=== PATIENT | male | born 1980 | race Caucasian/White ===

== ENCOUNTER 2025-01-03 11:45 | Emergency (ER) | payer OTHER ==
[2025-01-03 12:28] LABS: Absolute Lymphocytes (CBC) 2.0 K/uL (0.7-4.9); Hematocrit 49.4 % (39.6-49.0); Hemoglobin 17.0 g/dL (13.6-17.9); MCH 28.2 pg (27.0-35.0); MCHC 34.3 g/dL (32.0-36.0); MCV 82.0 fL (80-100); MPV 8.9 fL (7.6-11.3); Nucleated RBC Absolute Count 0.0 (0-0); Nucleated Red Blood Cells % 0.4 % (0-0); RBC Red Blood Cell Count 6.03 M/uL (4.33-5.43); White Blood Count 7.10 thou/uL (4.3-10.9)
[2025-01-03 12:29] LABS: Urine Microscopic Reflex YN NO UMIC
[2025-01-03] MEDS ORDERED: FAMOTIDINE 20 MG/2 ML VIAL IV ONE (12:39)
[2025-01-03] MEDS ORDERED: ASPIRIN 81 MG CHEWABLE TABLET ONE (12:39)
[2025-01-03] MEDS ORDERED: NA CHLORIDE 0.9% 500 ML ONE (12:40)
[2025-01-03 12:41] LABS: PT Prothrombin Time 13.3 SECONDS (10-13.0); Protime INR 1.18
--- NOTE | 2025-01-03 12:48 | RAD REPORT ---
EXAMINATION: ONE VIEW CHEST XR CLINICAL INDICATION: Male, 44 years old.,CHEST PAIN TECHNIQUE: Frontal chest projection is submitted. Examination is limited by patient positioning and t echnique. COMPARISON: No prior exam. FINDINGS: The lungs are well inflated and clear. No pneumothorax or sizable effusion. The heart is normal in s ize. Mediastinal contours are unremarkable. IMPRESSION: No acute intrathoracic abnormalities.
[2025-01-03 12:55] LABS: ALT/SGPT 201.0 U/L (16-61); AST/SGOT 91.0 U/L (15-37); Albumin 4.0 g/dL (3.4-5.0); Albumin/Globulin Ratio 1.0 (1.1-1.8); Alkaline Phosphatase 120.0 U/L (45-117); Anion Gap 10.3 mEq/L (5.0-15.0); BUN Blood Urea Nitrogen 10.0 mg/dL (7-18); Bilirubin Indirect, Calculated 0.5 mg/dL (0.2-0.8); Globulin 4.0 g/dL (2.3-3.5); Glucose Level 107.0 mg/dL (74-106); Lipase 24.0 U/L (13-75); Magnesium 2.3 mg/dL (1.6-2.4); NT PRO-BNP 10.0 pg/mL (<125); Potassium 3.3 mEq/L (3.5-5.1); Troponin High Sensitivity 5.2 pg/mL (<58.9)
[2025-01-03] MEDS ORDERED: POTASSIUM 25 MEQ EFFERV TAB ONE (16:18)
[2025-01-03] MEDS ORDERED: AMLODIPINE 5 MG TAB ONE (16:18)
--- NOTE | 2025-01-03 16:21 | ER ---
Nurse's Notes [facility] Name: Andre Jaramillo Age: 44 yrs Sex: Male : 1980 Arrival Date: 01/03/2025 Time: 11:45 Bed 15 Private MD: Diagnosis: Chest pain, unspecified;Essential (primary) hypertension Presentation: 01/03 12:02 Chief complaint: Patient states: Pt reports mild palpitations intermittently x3 days. ss Denies pain/N/V. Reports hx of elevated BP-currently monitoring per PCP. Coronavirus screen: Vaccine status: Patient reports receiving the 2nd dose of the covid vaccine. Client denies travel out of the [place] in the last 14 days. Ebola Screen: Patient negative for fever greater than or equal to 101.5 degrees Fahrenheit, and additional compatible Ebola Virus Disease symptoms Patient denies exposure to infectious person. Patient denies travel to an Ebola-affected area in the 21 days before illness onset. Initial Sepsis Screen: Does the patient meet any 2 criteria? No. Patient's initial sepsis screen is negative. Does the patient have a suspected source of infection? No. Patient's initial sepsis screen is negative. Risk Assessment: Do you want to hurt yourself or someone else? Patient reports no desire to harm self or others. Onset of symptoms was December 31, 2024. 12:02 Method Of Arrival: Ambulatory ss 12:02 Acuity: IRA 2 ss Triage Assessment: 12:04 General: Appears in no apparent distress. Behavior is calm, cooperative. Pain: Denies ss pain. Historical: - Allergies: 12:04 No Known Allergies; ss - Home Meds: 12:04 None [Active]; ss - PMHx: 12:04 Hypertensive disorder; ss - PSHx: 12:04 None; ss - Immunization history:: Adult Immunizations up to date, Client reports receiving the 2nd dose of the Covid vaccine, Last tetanus immunization: up to date. - Infectious Disease History:: Denies. - Social history:: Smoking status: Patient denies any tobacco usage or history of. Screenin:48 [facility] ED Fall Risk Assessment (Adult) History of falling in the last 3 months, bp including since admission No falls in past 3 months (0 pts) Confusion or Disorientation No (0 pts) Intoxicated or Sedated No (0 pts) Impaired Gait No (0 pts) Mobility Assist Device Used No (0 pt) Altered Elimination No (0 pt) Score/Fall Risk Level 0 - 2 = Low Risk Oriented to surroundings. Abuse screen: Denies threats or abuse. Denies injuries from another. Nutritional screening: No deficits noted. Tuberculosis screening: No symptoms or risk factors identified. Assessment: 12:10 General: SEE TRIAGE NOTE. bp 16:48 Reassessment: Patient appears in no apparent distress at this time. Patient is alert, bp oriented x 3, equal unlabored respirations, skin warm/dry/pink. Vital Signs: 12:02 Weight 97.52 kg; Height 5 ft. 11 in. ; Pain 1/10; ss 12:09 BP 170 / 102; Pulse 78; Resp 19; Temp 98.2; Pulse Ox 98% ; ts3 16:47 BP 164 / 98; Pulse 71; Resp 17; Pulse Ox 98% ; bp 12:02 Body Mass Index 29.99 (97.52 kg, 180.34 cm) ss 12:02 Pain Scale: Adult ss ED Course: 11:50 Patient arrived in ED. im 11:58 Keon Pretty MD is Attending Physician. jeffery 12:04 Triage completed. ss 12:04 Arm band placed on right wrist. ss 12:09 EKG done, by machine tool technician instructor. reviewed by Keon Pretty MD. ts3 12:15 Cesar Goodman, RN is Primary Nurse. bp 12:24 Initial lab(s) drawn, by labelling machine operator, sent to lab. Inserted saline lock: 20 gauge in right ts3 antecubital area, using aseptic technique. Blood collected. Flushed with 10 mL NS. 12:24 Urine collected: clean catch specimen, sent to lab. ts3 12:36 XRAY Chest (1 view) In Process Unspecified. EDMS 16:19 Jose Radford MD is Referral Physician. jeffery 16:48 Patient has correct armband on for positive identification. bp 17:22 No provider procedures requiring assistance completed. IV discontinued, intact, bp bleeding controlled, No redness/swelling at site. Pressure dressing applied. Administered Medications: 12:45 Drug: Aspirin PO Chewable Tablet 324 mg PO once; 81 mg tablets x 4 Route: PO; bp 17:21 Follow up: Response: No adverse reaction bp 12:45 Drug: Famotidine IVP 20 mg IVP once; dilute with 10 mL 0.9% NaCl; give over 2 minutes bp Route: IVP; Site: right antecubital; 17:21 Follow up: Response: No adverse reaction bp 12:45 Drug: NS 0.9% IV 500 ml 500 ml IV at 1 bolus once; to be given as a bolus over 30 bp minutes Volume: 500 ml; Route: IV; Rate: 1 bolus; Site: right antecubital; 17:23 Follow up: IV Status: Completed infusion bp 16:49 Drug: Potassium PO Effervescent Tablet 25 mEq PO once; dissolve in 4 ounces of water or bp juice Route: PO; 17:21 Follow up: Response: No adverse reaction bp 16:49 Drug: Lisinopril PO 20 mg PO once Route: PO; bp 17:21 Follow up: Response: No adverse reaction bp 16:49 Drug: Norvasc PO 5 mg PO once Route: PO; bp 17:21 Follow up: Response: No adverse reaction bp Medication: 16:48 VIS not applicable for this client. bp Outcome: 16:20 Discharge ordered by MD. gil 17:22 Discharged to home ambulatory, bp 17:22 Condition: stable 17:22 Discharge instructions given to patient, Instructed on discharge instructions, follow up and referral plans. medication usage, Demonstrated understanding of instructions, follow-up care, medications, Prescriptions given X 2, 17:22 Patient left the ED. bp Signatures: Dispatcher [employer] EDMI Keon Pretty MD MD cha Blanchard, Shelby, RN RN Cesar Goodman RN RN Bobbi Encarnacion Taisha ts3
--- NOTE | 2025-01-03 16:21 | EDPHYS ---
Physician Documentation [facility] Name: Andre Jaramillo Age: 44 yrs Sex: Male : 1980 Arrival Date: 01/03/2025 Time: 11:45 Bed 15 Private MD: FELICITA Physician Keon Pretty HPI: 01/03 16:12 This 44 yrs old Male presents to ER via Ambulatory with complaints of chest jeffery discomfort, High Blood Pressure. 16:12 The patient has elevated blood pressure and discovered this at home, at a physician's [facility] office. Onset: The symptoms/episode began/occurred 3 day(s) ago. Modifying factors: The symptoms are aggravated by nothing, The symptoms are alleviated by remaining still. Associated signs and symptoms: The patient has no apparent associated signs or symptoms. Severity of symptoms: At its worst the blood pressure was moderate, in the emergency department the blood pressure is unchanged. The patient has experienced similar episodes in the past, multiple times. Historical: - Allergies: 12:04 No Known Allergies; ss - Home Meds: 12:04 None [Active]; ss - PMHx: 12:04 Hypertensive disorder; ss - PSHx: 12:04 None; ss - Immunization history:: Adult Immunizations up to date, Client reports receiving the 2nd dose of the Covid vaccine, Last tetanus immunization: up to date. - Infectious Disease History:: Denies. - Social history:: Smoking status: Patient denies any tobacco usage or history of. ROS: 16:16 Constitutional: Negative for fever, chills, and weight loss, Eyes: Negative for injury, jeffery pain, redness, and discharge, ENT: Negative for injury, pain, and discharge, Neck: Negative for injury, pain, and swelling, Respiratory: Negative for shortness of breath, cough, wheezing, and pleuritic chest pain, Abdomen/GI: Negative for abdominal pain, nausea, vomiting, diarrhea, and constipation, Back: Negative for injury and pain, : Negative for injury, bleeding, discharge, and swelling, MS/Extremity: Negative for injury and deformity, Skin: Negative for injury, rash, and discoloration, Neuro: Negative for headache, weakness, numbness, tingling, and seizure, Psych: Negative for depression, anxiety, suicide ideation, homicidal ideation, and hallucinations, Allergy/Immunology: Negative for hives, rash, and allergies, Endocrine: Negative for neck swelling, polydipsia, polyuria, polyphagia, and marked weight changes, Hematologic/Lymphatic: Negative for swollen nodes, abnormal bleeding, and unusual bruising, 16:16 Cardiovascular: Positive for palpitations, 16:16 MS/extremity: Negative for acute changes, Exam: 16:16 Constitutional: This is a well developed, well nourished patient who is awake, alert, jeffery and in no acute distress. Head/Face: Normocephalic, atraumatic. Eyes: Pupils equal round and reactive to light, extra-ocular motions intact. Lids and lashes normal. Conjunctiva and sclera are non-icteric and not injected. Cornea within normal limits. Periorbital areas with no swelling, redness, or edema. ENT: Nares patent. No nasal discharge, no septal abnormalities noted. Tympanic membranes are normal and external auditory canals are clear. Oropharynx with no redness, swelling, or masses, exudates, or evidence of obstruction, uvula midline. Mucous membranes moist. Neck: Trachea midline, no thyromegaly or masses palpated, and no cervical lymphadenopathy. Supple, full range of motion without nuchal rigidity, or vertebral point tenderness. No Meningismus. Chest/axilla: Normal chest wall appearance and motion. Nontender with no deformity. No lesions are appreciated. Cardiovascular: Regular rate and rhythm with a normal S1 and S2. No gallops, murmurs, or rubs. Normal PMI, no JVD. No pulse deficits. Respiratory: Lungs have equal breath sounds bilaterally, clear to auscultation and percussion. No rales, rhonchi or wheezes noted. No increased work of breathing, no retractions or nasal flaring. Abdomen/GI: Soft, non-tender, with normal bowel sounds. No distension or tympany. No guarding or rebound. No evidence of tenderness throughout. Back: No spinal tenderness. No costovertebral tenderness. Full range of motion. Male : Normal genitalia with no discharge or lesions. Skin: Warm, dry with normal turgor. Normal color with no rashes, no lesions, and no evidence of cellulitis. MS/ Extremity: Pulses equal, no cyanosis. Neurovascular intact. Full, normal range of motion., bilateral aka Neuro: Awake and alert, GCS 15, oriented to person, place, time, and situation. Cranial nerves II-XII grossly intact. Motor strength 5/5 in all extremities. Sensory grossly intact. Cerebellar exam normal. Normal gait. Psych: Awake, alert, with orientation to person, place and time. Behavior, mood, and affect are within normal limits. 16:16 ECG was reviewed by the Attending Physician. Vital Signs: 12:02 Weight 97.52 kg; Height 5 ft. 11 in. ; Pain 1/10; ss 12:09 BP 170 / 102; Pulse 78; Resp 19; Temp 98.2; Pulse Ox 98% ; ts3 16:47 BP 164 / 98; Pulse 71; Resp 17; Pulse Ox 98% ; bp 12:02 Body Mass Index 29.99 (97.52 kg, 180.34 cm) ss 12:02 Pain Scale: Adult ss MDM: 11:58 Medical Screening Exam initiated jeffery 16:17 Differential diagnosis: abnormal EKG, acute myocardial infarction, acute pericarditis, jeffery anxiety, coronary artery disease chest wall pain, congestive heart failure cholecystitis, Cholelithiasis costochondritis, hypertensive crisis, Malignant HTN. HEART Score: History: Slightly Suspicious (0), ECG: Normal (0), Age: < or = 45 years (0), Risk Factors: > or = 3 Risk factors for atherosclerotic disease (2), [Hypertension] [+ Family HX] [Obesity] Troponin: < or = 1 x Normal Limit (0). The patient was given aspirin in the Emergency Department. RAYMOND Risk Score: 1 - Three or more CAD risk factors, TOTAL SCORE = 1. Data reviewed: vital signs, nurses notes, lab test result(s), EKG, radiologic studies, plain films. Consideration of Admission/Observation Escalation of care including admission/observation considered. I considered the following discharge prescriptions or medication management in the emergency department Medications were administered in the Emergency Department. See MAR. Independent interpretation of the following test(s) in the Emergency Department EKG: See my EKG interpretation above. Test considered but Not performed: Ultrasound no 2 d echo. Historians other than the Patient: pt well informed. Care significantly affected by the following chronic conditions: Hypertension, Obesity. Counseling: I had a detailed discussion with the patient and/or guardian regarding the historical points, exam findings, and any diagnostic results supporting the discharge/admit diagnosis, the presence of at least one elevated blood pressure reading (>120/80) during this emergency department visit, lab results, radiology results, the need for outpatient follow up, for definitive care, a neon sign erector, a family practitioner. 01/03 11:59 Order name: Basic Metabolic Panel; Complete Time: 16:06 [facility] 01/03 11:59 Order name: CBC with Diff; Complete Time: 16:06 [facility] 01/03 11:59 Order name: LFT's; Complete Time: 16:06 [facility] 01/03 11:59 Order name: Magnesium; Complete Time: 16:06 [facility] 01/03 11:59 Order name: NT PRO-BNP; Complete Time: 16:06 [facility] 01/03 11:59 Order name: PT-INR; Complete Time: 16:06 [facility] 01/03 11:59 Order name: Troponin HS; Complete Time: 16:06 [facility] 01/03 11:59 Order name: Lipase; Complete Time: 16:06 [facility] 01/03 11:59 Order name: UA Rfx Zuhair Cult if indicated; Complete Time: 16:06 [facility] 01/03 16:12 Order name: Troponin High Sensitivity: now jeffery 01/03 11:59 Order name: XRAY Chest (1 view); Complete Time: 16:06 [facility] 01/03 11:59 Order name: Cardiac monitoring; Complete Time: 12:04 [facility] 01/03 11:59 Order name: EKG - Nurse/Tech; Complete Time: 12:04 [facility] 01/03 11:59 Order name: IV Saline Lock; Complete Time: 12:24 [facility] 01/03 11:59 Order name: Labs collected and sent; Complete Time: 12:24 [facility] 01/03 11:59 Order name: O2 Per Protocol; Complete Time: 12:45 [facility] 01/03 11:59 Order name: O2 Sat Monitoring; Complete Time: 12:05 [facility] EC:16 Rate is 79 beats/min. Rhythm is regular. QRS [place] is Normal. GA interval is normal. QRS jeffery interval is normal. QT interval is normal. No Q waves. T waves are Normal. No ST changes noted. Clinical impression: NSR w/ Non-specific ST/T Changes and No evidence of ischemia. Interpreted by me. Reviewed by me. Administered Medications: 12:45 Drug: Aspirin PO Chewable Tablet 324 mg PO once; 81 mg tablets x 4 Route: PO; bp 17:21 Follow up: Response: No adverse reaction bp 12:45 Drug: Famotidine IVP 20 mg IVP once; dilute with 10 mL 0.9% NaCl; give over 2 minutes bp Route: IVP; Site: right antecubital; 17:21 Follow up: Response: No adverse reaction bp 12:45 Drug: NS 0.9% IV 500 ml 500 ml IV at 1 bolus once; to be given as a bolus over 30 bp minutes Volume: 500 ml; Route: IV; Rate: 1 bolus; Site: right antecubital; 17:23 Follow up: IV Status: Completed infusion bp 16:49 Drug: Potassium PO Effervescent Tablet 25 mEq PO once; dissolve in 4 ounces of water or bp juice Route: PO; 17:21 Follow up: Response: No adverse reaction bp 16:49 Drug: Lisinopril PO 20 mg PO once Route: PO; bp 17:21 Follow up: Response: No adverse reaction bp 16:49 Drug: Norvasc PO 5 mg PO once Route: PO; bp 17:21 Follow up: Response: No adverse reaction bp Disposition Summary: 01/03/25 16:20 Discharge Ordered Notes: Location: Home jeffery Problem: new jeffery Symptoms: have improved jeffery Condition: Stable jeffery Diagnosis - Chest pain, unspecified jeffery - Essential (primary) hypertension jeffery Followup: jeffery - With: Private Physician - When: 1 - 2 days - Reason: Recheck today's complaints, Continuance of care, Re-evaluation by your physician Followup: jeffery - With: Jose Radford MD - When: 1 - 2 days - Reason: Recheck today's complaints, Continuance of care, Re-evaluation by your physician Discharge Instructions: - Discharge Summary Sheet jeffery - Nonspecific Chest Pain, Adult jeffery - Hypertension, Adult jeffery - Nonspecific Chest Pain, Adult, [id number] jeffery - Hypertension, Adult, [id number] jeffery - How to Take Your Blood Pressure, [id number] jeffery - Aspirin and Your Heart jeffery - Managing Your Hypertension jeffery Forms: - Medication Reconciliation Form jeffery - Antibiotic Education jeffery - Prescription Opioid Use jeffery - Patient Portal Instructions jeffery - Leadership Thank You Letter [facility] Prescriptions: - Lotrel 5-20 mg Oral capsule - take 1 capsule ORAL route daily; 20 capsule; Refills: 0, Product Selection jeffery Permitted - Pepcid 20 mg Oral Tablet - take 1 tablet ORAL route every 12 hours for 10 days; 20 tablet; Refills: 0, jeffery Product Selection Permitted Signatures: Dispatcher [employer] EDMS Keon Pretty MD MD cha Blanchard, Shelby, RN RN ss Cesar Goodman, MICHAEL RN bp Corrections: (The following items were deleted from the chart) 11:59 11:59 BASIC METABOLIC PANEL+C.LAB.BRZ ordered. EDMS EDMS 11:59 11:59 CBC+H.LAB.BRZ ordered. EDMS EDMS 11:59 11:59 HEPATIC FUNCTION+C.LAB.BRZ ordered. EDMS EDMS 11:59 11:59 MAGNESIUM+C.LAB.BRZ ordered. EDMS EDMS 11:59 11:59 PROBNP+C.LAB.BRZ ordered. EDMS EDMS 12:00 11:59 PROTIME (+INR)+COAG.LAB.BRZ ordered. EDMS EDMS 12:00 11:59 Troponin High Sensitivity+C.LAB.BRZ ordered. EDMS EDMS 12:00 11:59 LIPASE+C.LAB.BRZ ordered. EDMS EDMS 12:00 11:59 UA Rfx Zuhair Cult if indicated+U.LAB.BRZ ordered. EDMS EDMS 12:00 12:00 Chest Single View+RAD.RAD.BRZ ordered. EDMS EDMS
[2025-01-03 17:50] VITALS: O2SAT 98
[2025-01-03 17:52] VITALS: BP 170/102; TEMP 98.2
== END 2025-01-03 17:22 | disposition home or self-care (01) ==
LOC: ER 11:45
DX: R07.89 Other chest pain (principal); I10 Essential (primary) hypertension
CPT/HCPCS: 96361; 93005; 85025; 80048; 36415; 83735; 85610; 80076; 81003; 84484 ×2; 83690; 83880; 71045; 96374; 99284; J7040